=== PATIENT | male | born 2000 | race African-American/Black ===

== ENCOUNTER 2022-04-03 12:15 | Emergency (ER) | payer SELFPAY ==
[~2022-04-03] VITALS: Ht 180 cm; Wt 70.0 kg
[2022-04-03] MEDS ORDERED: NS IV 1000 ML 1,000 ML IV STA (12:40)
[2022-04-03] MEDS ORDERED: ONDANSETRON 4 MG/2 ML (SDV) Z0FRAN IVP ONE (12:45)
--- NOTE | 2022-04-03 12:46 | ED Head Injury ---
General Chief Complaint: Head/Cervical Problems Stated Complaint: HEAD INJURY Nursing Triage Note: AMBULATED TO ROOM 06 WITH COMPLAINT OF HEAD PAIN, BLURRED VISION IN LEFT EYE, AND NAUSEA AFTER FALLING AND HITTING HIS HEAD DURING FOOTBALL PRACTICE. PT STATES HE WAS WEARING HIS HELMET. DENIES LOC. DENIES NECK PAIN. Source: patient Exam Limitations: no limitations History of Present Illness Date Seen by Provider: Apr 03, 2022 Time Seen by Provider: 12:42 Initial Comments This is a 21-year-old male that presents to the emergency room for evaluation of a head injury. He was playing football in a scrimmage today and states that he fell and landed on the left side of his head. He did not have loss of consciousness but states that since then he has had an 8 out of 10 sharp headache and has had significant nausea and vomiting. He states that in 2020 he did have a similar incident playing high school football. He denies any significant numbness, tingling, neck pain or weakness in his extremities. Occurred: just prior to arrival Severity: moderate Location: temporal Method of Injury: direct blow, fell Loss of Consciousness: no loss of consciousness Associated Systoms: Denies Symptoms Allergies and Home Medications Allergies Coded Allergies: No Known Drug Allergies (Unverified , 04/03/22) Patient Home Medication List Home Medication List Reviewed: Yes Review of Systems Review of Systems Constitutional: no symptoms reported Eyes: Blurred Vision Ears, Nose, Mouth, Throat: no symptoms reported Respiratory: no symptoms reported Cardiovascular: no symptoms reported Gastrointestinal: nausea, vomiting Genitourinary: no symptoms reported Musculoskeletal: no symptoms reported Skin: no symptoms reported Psychiatric/Neurological: Headache Endocrine: No Symptoms Reported Hematologic/Lymphatic: No Symptoms Reported Past [id number]-Lvliuc-Yfgeyp Hx Patient Social History Tobacco Use?: No Substance use?: No Alcohol Use?: No Immunizations Up To Date First/Initial COVID19 Vaccinat: UNKNOWN COVID19 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 oz. kg; 21.00 BMI Method: General Appearance: WD/WN, no apparent distress HEENT: PERRL/EOMI, TMs normal, pharynx normal Neck: non-tender, full range of motion, supple Cardiovascular: regular rate, rhythm, no edema Respiratory: chest non-tender, lungs clear, normal breath sounds, no respiratory distress Gastrointestinal: normal bowel sounds, non tender, soft Back: normal inspection, no CVA tenderness, no vertebral tenderness Extremities: normal range of motion, non-tender, normal inspection, no pedal edema Psychiatric: alert, oriented x 3 Coordination/Gait: normal finger to nose, normal gait Skin: normal color, warm/dry Lisa Coma Score Best Eye Response: (4) Open Spontaneously Best Verbal Response: (5) Oriented Best Motor Response: (6) Obeys Commands Progress/Results/Core Measures Results/Orders My Orders Orders - ELLIOTT AYALA Ondansetron Injection (Zofran Injectio (04/03/22 12:45) Ns Iv 1000 Ml (Sodium Chloride 0.9%) (04/03/22 12:40) Ct Head/Cervical Spine Wo (04/03/22 12:40) Ed Iv/Invasive Line Start (04/03/22 12:40) Medications Given in ED Current Medications Medications Dose Ordered Sig/Nicolasa Route Start Time Stop Time Status Last Admin Dose Admin Ondansetron HCl 4 mg ONCE ONCE IVP 04/03/22 12:45 04/03/22 12:46 DC 04/03/22 12:51 4 MG Vital Signs/I&O 04/03/22 12:20 Temp 36.7 Pulse 62 Resp 16 B/P (MAP) 142/85 (104) Pulse Ox 100 O2 Delivery Room Air Blood Pressure Mean: 104 Departure Communication (Admissions) Patient feels markedly improved after IV hydration and Zofran in the emergency room. CT of the head and cervical spine are negative. I spoke with the [facility] staff and the patient about entering concussion protocol and the importance of brain rest. They are in agreement to the care plan and will return if worse. Impression Primary Impression: Closed head injury Additional Impressions: Nausea & vomiting Concussion without loss of consciousness Disposition: 01 HOME, SELF-CARE Condition: Stable Departure-Patient Inst. Patient Instructions: Minor Head Injury (DC), Concussion in Adults Add. Discharge Instructions: Please follow-up closely with your team physician/trainers for concussion protocol instructions. All discharge instructions reviewed with patient and/or family. Voiced understanding. Scripts Ondansetron (Ondansetron Odt) 4 Mg Tab.rapdis 4 MG PO TID for Nausea, #14 TAB Prov: ELLIOTT AYALA 04/03/22 Work/School Note: School/Childcare Release Date Seen in the Emergency Department: Apr 03, 2022 Time Dismissed from Emergency Department: 13:50 Return to School: Apr 06, 2022 Restrictions: No Sports-Until Released Other Restrictions Listed Below: Patient needs to be completely symptom free for 24 hours before returning ELLIOTT AYALA Apr 03, 2022 12:46
--- NOTE | 2022-04-03 13:31 | Diagnostic Imaging Report ---
PROCEDURE: CT head and CT cervical spine without contrast. TECHNIQUE: Multiple contiguous axial images were obtained through the brain and cervical spine without the use of intravenous contrast. Sagittal and coronal reformations through the cervical spine were then performed. Auto Exposure Controls were utilized during the CT exam to meet ALARA standards for radiation dose reduction. INDICATION: Head pain, left eye, blurred vision, nausea, recent fall. CT HEAD: There is no hemorrhage, hydrocephalus, cerebral edema, mass, mass effect nor evidence for elevated intracranial pressures. The basilar cisterns are patent. There is no sulcal effacement. No abnormal extra-axial collections. Ventricular system nondilated and nondisplaced. The orbits, sinuses and calvarium unremarkable. CT CERVICAL: Cervical statures normal, their alignment anatomic. The craniocervical relationship normal. No cervical spinal fracture, facet dislocation or traumatic malalignment. Prevertebral and retropharyngeal spaces normal. Hyoid and tracheal cartilage as well as structures of the larynx showed no deformity. IMPRESSION: No acute abnormality identified at CT evaluations of the head and cervical spine. Dictated by: Dictated on workstation # [id number]
[2022-04-03] MEDS ORDERED: ONDA4TAB11 PO (13:50)
[2022-04-03 13:56] VITALS: BP 135/82
== END 2022-04-03 13:56 | disposition home or self-care (01) ==
LOC: ER 12:19
DX: S06.0X0A Concussion without loss of consciousness, initial encounter (principal); Z28.311 Partially vaccinated for COVID-19; W18.30XA Fall on same level, unspecified, initial encounter; Y93.61 Activity, american tackle football
CPT/HCPCS: 70450; 72125